=== PATIENT | male | born 1995 | race Caucasian/White ===

== ENCOUNTER 2021-11-24 00:47 | Emergency (ER) | payer BC, MEDICAID ==
[~2021-11-24] VITALS: Ht 175.3 cm; Wt 98.2 kg
[2021-11-24 01:32] LABS: BASO % 0.3 % (0.0-1.0); EOS # 0.1 10^3/uL (0.0-0.5); EOS % 0.5 % (0.0-3.0); HEMATOCRIT 39.9 % (42.0-52.0); HEMOGLOBIN 13.3 g/dl (13.5-17.5); LYMPH # 1.8 10^3/uL (1.5-5.0); LYMPH % 12.8 % (24.0-44.0); MEAN CORPUSCULAR HEMOGLOBIN 28.7 pg (27.0-33.0); MEAN CORPUSCULAR HGB CONC 33.3 g/dl (32.0-36.5); MEAN CORPUSCULAR VOLUME 86.2 fl (80.0-96.0); MONO # 0.9 10^3/uL (0.0-0.8); MONO % 6.3 % (2.0-8.0); NEUTROPHILS # 10.8 10^3/uL (1.5-8.5); NEUTROPHILS % 79.2 % (36.0-66.0); PLATELET COUNT, AUTOMATED 298 10^3/uL (150-450); RED BLOOD COUNT 4.63 10^6/uL (4.30-6.10); WHITE BLOOD COUNT 13.7 10^3/uL (4.0-10.0)
[2021-11-24 02:05] LABS: CK-MB VALUE MASS < 1.0 NG/ML (<3.6); CPK CREATINE PHOSPHOKINASE 74 U/L (39-308); MB/CK RELATIVE INDEX 1.35 (< OR =4)
[2021-11-24 02:07] LABS: OSMOLALITY SERUM 273 MOSM/KG (275-295)
[2021-11-24 02:08] LABS: AMPHETAMINES LEVEL URINE NEGATIVE (NEGATIVE); BARBITURATES URINE NEGATIVE (NEGATIVE); BENZODIAZEPINES URINE NEGATIVE (NEGATIVE); CANNABINOIDS URINE POSITIVE (NEGATIVE); COCAINE METABOLITE URINE NEGATIVE (NEGATIVE); METHADONE URINE NEGATIVE (NEGATIVE); OPIATES URINE NEGATIVE (NEGATIVE); PHENCYCLIDINE URINE NEGATIVE (NEGATIVE)
[2021-11-24 02:14] LABS: ACETAMINOPHEN LEVEL < 2.0 UG/ML (10.0-30.0); ALBUMIN 3.7 GM/DL (3.2-5.2); ALT/SGPT 18 U/L (12-78); BILIRUBIN,DIRECT 0.2 MG/DL (0.0-0.2); BILIRUBIN,TOTAL 0.8 MG/DL (0.2-1.0); BLOOD UREA NITROGEN 18 MG/DL (7-18); CALCIUM LEVEL 8.5 MG/DL (8.5-10.1); CARBON DIOXIDE LEVEL 25 MEQ/L (21-32); CHLORIDE LEVEL 100 MEQ/L (98-107); CREATININE FOR GFR 1.22 MG/DL (0.70-1.30); ETHYL ALCOHOL (ETHANOL) < 0.003 % (0.000-0.010); GLOMERULAR FILTRATION RATE > 60.0 (>60); GLUCOSE, FASTING 112 MG/DL (70-100); POTASSIUM SERUM 3.6 MEQ/L (3.5-5.1); SALICYLATE LEVEL < 1.7 MG/DL (5.0-30.0); SODIUM LEVEL 132 MEQ/L (136-145); TOTAL PROTEIN 7.1 GM/DL (6.4-8.2)
[2021-11-24 08:22] VITALS: BP 124/70
== END 2021-11-24 08:29 | disposition home or self-care (01) ==
LOC: M ED 00:47
DX: R41.0 Disorientation, unspecified (principal); R00.2 Palpitations; R42 Dizziness and giddiness; Z88.0 Allergy status to penicillin